=== PATIENT | male | born 1935 | race Caucasian/White ===

== ENCOUNTER 2019-03-16 14:04 | Inpatient (IN) ==
[2019-03-16] MEDS ORDERED: ASPIRIN PO ONE (14:25)
--- NOTE | 2019-03-16 14:48 | Diag Imaging Result Doc PS360 ---
EXAM: CHEST-2 VIEWS 03/16/2019 HISTORY: shortness of breath TECHNIQUE: PA and lateral chest COMMENT: The lungs are hypoinflated. There are no previous studies. There may be some mild atelectasis laterally in the left lower lobe. IMPRESSION: Left lower lobe atelectasis versus pneumonia. Electronically signed by Freeman Emerson 03/16/2019 2:46 PM
[2019-03-16 14:52] LABS: BASO# 0.05 X1000 (0.0-0.2); BASO% 0.4 % (0.0-0.8); EOS# 0.39 X1000 (0.0-0.7); EOS% 2.8 % (0.0-10.0); HEMATOCRIT 45.4 % (42.0-52.0); HEMOGLOBIN 15.2 g/dL (14.0-18.0); IMM GRAN# 0.04 X1000 (0.0-0.04); IMM GRAN% 0.3 % (0.0-0.5); LYMPH# 1.12 X1000 (1.2-3.4); LYMPH% 8.1 % (20.5-51.1); MCH 30.2 PG (27-31); MCHC 33.5 g/dL (33-37); MCV 90.1 FL (81-99); MONO# 1.72 X1000 (0.11-0.59); MONO% 12.4 % (1.7-9.3); MPV 10.7 FL (7.4-10.4); PLT 374 X1000 (130-400); RBC 5.04 XMIL (4.7-6.1); RDW 13.8 % (11.5-14.5); WBC 13.82 X1000 (4.8-10.8)
--- NOTE | 2019-03-16 14:54 | EKG Report ---
Test Performed on : 03/16/2019 2:10:25 PM Test Reason : shortness of breath Blood Pressure : / mmHG Vent. Rate : 083 BPM Atrial Rate : 083 BPM P-R Int : 192 ms QRS Dur : 126 ms QT Int : 410 ms P-R-T Axes : 063 -34 007 degrees QTc Int : 481 ms Sinus rhythm. with premature atrial complexes. Left axis deviation Right bundle branch block Abnormal ECG No previous ECGs available Unconfirmed Result
[2019-03-16 14:58] LABS: INR 1.01; PROTIME 13.5 Seconds (11.0-16.0)
[2019-03-16 14:59] LABS: PTT 28.8 Seconds (22.3-41.8)
[2019-03-16 15:20] LABS: AGAP 14; ALB/GLOB RATIO 1.4; ALBUMIN 3.2 g/dL (3.5-5.0); ALKALINE PHOSPHATASE 102 U/L (32-122); BUN 17 mg/dL (8-22); CALCIUM 9.1 mg/dL (8.8-10.2); CHLORIDE 99 mmol/L (98-107); CK PROFILE 107 U/L (24-204); COSMO 281; CREATININE 0.8 mg/dL (0.7-1.2); ESTIMATED GFR > 60; GLUCOSE 138 mg/dL (70-104); GOT 24 U/L (10-34); GPT 12 U/L (10-44); SODIUM 139 mmol/L (136-145); TCO2 26 mmol/L (25-35); TOTAL BILIRUBIN 0.26 mg/dL (0.20-1.00); TOTAL PROTEIN 5.5 g/dL (6.3-8.3)
--- NOTE | 2019-03-16 17:22 | Diag Imaging Result Doc PS360 ---
CT ABD/PELVIS W/IV CONT ONLY - 03/16/2019 INDICATION: abdominal distension COMPARISON: None FINDINGS: There is a trace left pleural effusion. Heart size is normal. No infiltrates in the lung bases. There is odqwa-sh-ldypqtkp ascites. There is omental caking consistent with carcinomatosis. There is an ill-defined mass occupying the left lobe of the liver measuring about 3.8 x 6.2 cm. There are a few other smaller hypoenhancing lesions scattered throughout the liver as well. There is essentially hypoenhancing adenopathy surrounding the pancreatic head, and in the portacaval space. These nodes measure up to about 2.7 cm. There is diffuse atrophy of the pancreas. Main portal vein is patent. Normal spleen size. Splenic vein is patent. The liver is very atrophic. There are bilateral renal cysts. These appear simple. Otherwise the kidneys are normal. There is some diverticulosis of the distal colon. Otherwise the gastric intestinal tract all appears normal. There is a penile implant. Prostate is absent. Urinary bladder and rectum are normal. There are moderate degenerative changes of the spine. No acute or suspicious bony lesion. IMPRESSION: Peritoneal carcinomatosis. Small to moderate ascites. Multiple liver masses including a dominant mass in the left lobe of the liver. Hepatic adenopathy. Consistent with either cirrhosis with primary hepatocellular carcinoma, or metastatic disease to the liver from an unclear source. This exam was performed using automated exposure control, adjustment of mA or kV according to patient size, and/or use of iterative reconstruction technique Electronically signed by Murali Tabares 03/16/2019 5:20 PM
[2019-03-16] MEDS ORDERED: LEVAQUIN 500 MG/D5W 500 MG/100 ML IVPB IV ONE (17:52)
--- NOTE | 2019-03-16 18:08 | PROVIDER DOCUMENTATION ---
This chart was entered by Maggie Diaz Scribe, acting as scribe for Gaurav Lee MD. HPI-Respiratory General - General Chief Complaint: Shortness of Breath Stated Complaint: SOB Time Seen by Provider: 03/16/19 14:54 Source: patient Allergies/Adverse Reactions: Patient Allergies Allergy/AdvReac Type Severity Reaction Status Date / Time No Known Allergies Allergy Verified 03/16/19 16:48 Home Medications: Home Medication List Medication Instructions Recorded Confirmed Last Taken Type Chlorthalidone 12.5 mg PO DAILY 03/16/19 03/16/19 Unknown History - History of Present Illness-Resp Nature of Presenting Problem: Patient is a 83 year old male who presents with shortness of breath. States shor tness of breath has been present for 2 days. Denies chest pain. Quality of Pain: reports: tightness Severity in ED: reports: mild Onset/Duration: reports: 2 days ago Timing: reports: still present Associated Symptoms: reports: shortness of breath Similar Symptoms Previously?: Yes Recently seen or treated by another doctor?: No Review of Systems - Adult - REVIEW OF SYSTEMS - ADULT Constitutional: reports: no symptoms reported Eyes: reports: no symptoms reported Ears, Nose, Mouth & Throat: reports: no symptoms reported Cardiovascular: reports: no symptoms reported. denies: chest pain, irregular heart rate, palpitations Respiratory: reports: see HPI, shortness of breath. denies: cough, wheezing Gastrointestinal: reports: no symptoms reported Genitourinary: reports: no symptoms reported Musculoskeletal: reports: no symptoms reported Integumentary: reports: no symptoms reported Neurological: reports: no symptoms reported Psychiatric: reports: no symptoms reported Endocrine: reports: no symptoms reported Hematologic/Lymphatic: reports: no symptoms reported Allergic/Immunologic: reports: no symptoms reported All Other Systems: Reviewed and Negative Past History - Adult - PAST MEDICAL HISTORY-ADULT Review of Records: reports: Old Records Reviewed, Nursing Assessment Review, Medications Reviewed, Social history reviewed & non-contributory. Major Childhood Illnesses: reports: denies history Cardiovascular: reports: denies history Respiratory: reports: denies history Gastrointestinal: reports: denies history Obstetrical/Gynecological: reports: denies history Genitourinary: reports: denies history Musculoskeletal: reports: denies history Neurological: reports: denies history Endocrine/Immune: reports: denies history Other Conditions: reports: denies history - PRIOR SURGERIES/PROCEDURES Surgical/Procedure History: reports: reviewed, not pertinent - IMMUNIZATION STATUS Childhood Immunizations: See Nurse Assessment Flu Vaccine: See Nurse Assessment - FAMILY HISTORY Family History: reviewed, not pertinent - SOCIAL HISTORY Smoking: denies Substance Use: denies Living Situation: family Physical Exam-General - PHYSICAL EXAM-ADULT Initial Vital Signs Reviewed: Yes - CONSTITUTIONAL General Appearance: alert, no apparent distress. negative: lethargic - HEAD, EARS, NOSE, MOUTH & THROAT HENMT: normocephalic/atraumatic, moist mucous membranes. negative: angioedema - RESPIRATORY Respiratory: chest non-tender, lungs clear, normal breath sounds. negative: crackles, stridor - CARDIOVASCULAR Cardiovascular: normal peripheral pulses, regular rate, rhythm. negative: ta chycardia - GASTROINTESTINAL (ABDOMEN) Abdominal Exam: non tender, abnormal bowel sounds (hyper active bowel sounds), distended, other (tight abdomen). negative: guarding, rebound - MUSCULOSKELETAL Extremity: normal inspection. negative: deformity, erythema - SKIN Integumentary: normal color, normal turgor, warm/dry. negative: diaphoresis, ecchymosis, jaundice - NEUROLOGIC Neurologic: grossly normal. negative: aphasia, facial droop - PSYCHIATRIC Psych/Mental Status: normal mood/affect, oriented x 3. negative: anxious Progress - PLAN OF CARE/RESULTS Progress/Plan/Lab Results: Vital Signs - 8 hr 03/16/19 14:21 Temperature 97.8 F Pulse Rate 82 Respiratory Rate 26 H Blood Pressure 122/81 O2 Sat by Pulse Oximetry 95 Laboratory Results - last 24 hr 03/16/19 03/16/19 03/16/19 14:33 14:33 14:33 WBC 13.82 H RBC 5.04 Hgb 15.2 Hct 45.4 MCV 90.1 MCH 30.2 MCHC 33.5 RDW Std Deviation 13.8 Plt Count 374 MPV 10.7 H Immature Gran % (Auto) 0.3 Neut % (Auto) 76.0 H Lymph % (Auto) 8.1 L Mckean % (Auto) 12.4 H Eos % (Auto) 2.8 Baso % (Auto) 0.4 Immature Gran # (Auto) 0.04 Neut # (Auto) 10.50 H Lymph # (Auto) 1.12 L Mckean # (Auto) 1.72 H Eos # (Auto) 0.39 Baso # (Auto) 0.05 PT INR PTT (Actin FS) Sodium 139 Potassium 4.0 Chloride 99 Carbon Dioxide 26 Anion Gap 14 BUN 17 Creatinine 0.8 Estimated GFR/1.73 m2 > 60 BUN/Creatinine Ratio 21 Glucose 138 H Calculated Osmolality 281 Calcium 9.1 Total Bilirubin 0.26 AST 24 ALT 12 Alkaline Phosphatase 102 Creatine Kinase 107 Troponin T Pgm-I-Bohrzynvdsj Pept 178 Total Protein 5.5 L Albumin 3.2 L Globulin 2.3 Albumin/Globulin Ratio 1.4 03/16/19 03/16/19 14:33 14:33 WBC RBC Hgb Hct MCV MCH MCHC RDW Std Deviation Plt Count MPV Immature Gran % (Auto) Neut % (Auto) Lymph % (Auto) Mckean % (Auto) Eos % (Auto) Baso % (Auto) Immature Gran # (Auto) Neut # (Auto) Lymph # (Auto) Mckean # (Auto) Eos # (Auto) Baso # (Auto) PT 13.5 INR 1.01 PTT (Actin FS) 28.8 Sodium Potassium Chloride Carbon Dioxide Anion Gap BUN Creatinine Estimated GFR/1.73 m2 BUN/Creatinine Ratio Glucose Calculated Osmolality Calcium Total Bilirubin AST ALT Alkaline Phosphatase Creatine Kinase Troponin T < 0.010 Uca-R-Uwabdvbpjgx Pept Total Protein Albumin Globulin Albumin/Globulin Ratio Orders Category Date Time Status Admit - [facility] Routine AdmDCTranf 03/16/19 17:53 Active Activity - Bed Rest with BRP ORDERED Care 03/16/19 17:56 Active Call Admitting on Arrival AT ADMISSION Care 03/16/19 17:57 Active Cardiac Monitoring DIRECTED Care 03/16/19 14:26 Active Oxygen Therapy- ED Nursing DIRECTED Care 03/16/19 14:26 Active Saline Loc NOW Care 03/16/19 14:26 Active Vital Signs Order ROUTINE Care 03/16/19 17:56 Active Z-Document. for Tele Applied ORDERED Care 03/16/19 17:59 Active Regular Diet Diet 03/16/19 17:59 Active CHEST-2 VIEWS [RAD] Stat Exams 03/16/19 14:[address] ABD/PELVIS W/IV CONT ONLY [CT] Stat Exams 03/16/19 14:59 Completed BLOOD CULTURE [BLDCUL] Stat Lab 03/16/19 16:40 Results CBC WITH ELECTRONIC DIFF [HEME] Stat Lab 03/16/19 14:33 Completed CK PROFILE [SP CHEM] Stat Lab 03/16/19 14:33 Completed COMPREHENSIVE METABOLIC PANEL [CHEM] Stat Lab 03/16/19 14:33 Completed PRO B-NATRIURETIC PEPTIDE Stat Lab 03/16/19 14:33 Completed PROTIME WITH INR [COAG] Stat Lab 03/16/19 14:33 Completed PTT [COAG] Stat Lab 03/16/19 14:33 Completed TROPONIN T Stat Lab 03/16/19 14:33 Completed Aspirin Med 03/16/19 14:25 Discontinued 325 mg PO NOW ONE Levofloxacin 500 mg/D5w [Levaquin 500 mg/D5w] Med 03/16/19 17:52 Active 500 mg in 100 ml IV NOW CP/SOB/Palp >45 yrs of Age Stat Oth 03/16/19 14:25 Ordered Oxygen Device Routine Oth 03/16/19 17:57 Active Telemetry [OM.EQ] Routine Oth 03/16/19 17:56 Active EKG [EKG] Stat Ther 03/16/19 14:26 Draft Transfer/Admit Order [TRANSFER] Routine Transfer 03/16/19 17:59 Ordered Result Diagrams: 03/16/19 14:33 03/16/19 14:33 - EKG 1 Time of EKG reading by physician:: 14:10 EKG Read and Signed by:: Gaurav Lee EKG Interpretation (*Must complete 3 of following elements*): Abnormal Rate: 83 Rhythm: sinus rhythm with premature atrial complexes [place]: left QRS: RBB GA Interval: normal Comments: abnormal ECG - XRAY 1 XRAY Study: Chest Impression: See EMR Report (EXAM: CHEST-2 VIEWS 03/16/2019 HISTORY: shortness of breath TECHNIQUE: PA and lateral chest COMMENT: The lungs are hypoinflated. There are no previous studies. There may be some mild atelectasis laterally in the left lower lobe. IMPRESSION: Left lower lobe atelectasis versus pneumonia. Electronically signed by Freeman Emerson 03/16/2019 2:46 PM 03/16/19 144 Interpreting Physician: Freeman Emerson MD Dictated Date/Time: 03/16/19 1446 cc: Gaurav Lee MD; Brendan Velasquez MD) - CT/MRI 1 CT Study: Abdomen, Pelvis Impression: Abnormal ([facility] - [address], [address], [place] [address] [facility] - [address] [place] [address] Department of Imaging Patient: NIKUNJ SNELL Date: 03/16/19MR#: [id number] : 1936ADM Status: REG [facility]#: [id number] Age/Sex: 83/MRoom/Bed: Loc: ED Ordering Physician: Gaurav Lee MD Family Physician: Brendan Velasquez MD Reason for Procedure: abdominal distension Signed CT ABD/PELVIS W/IV CONT ONLY - 03/16/2019 INDICATION: abdominal distension COMPARISON: None FINDINGS: There is a trace left pleural effusion. Heart size is normal. No infiltrates in the lung bases. There is nqjsc-no-jnqioikm ascites. There is omental caking consistent with carcinomatosis. There is an ill-defined mass occupying the left lobe of the liver measuring about 3.8 x 6.2 cm. There are a few other smaller hypoenhancing lesions scattered throughout the liver as well. There is essentially hypoenhancing adenopathy surrounding the pancreatic head, and in the portacaval space. These nodes measure up to about 2.7 cm. There is diffuse atrophy of the pancreas. Main portal vein is patent. Normal spleen size. Splenic vein is patent. The liver is very atrophic. There are bilateral renal cysts. These appear simple. Otherwise the kidneys are normal. There is some diverticulosis of the distal colon. Otherwise the gastric intestinal tract all appears normal. There is a penile implant. Prostate is absent. Urinary bladder and rectum are normal. There are moderate degenerative changes of the spine. No acute or suspicious bony lesion. IMPRESSION: Peritoneal carcinomatosis. Small to moderate ascites. Multiple liver masses including a dominant mass in the left lobe of the liver. Hepatic adenopathy. Consistent with either cirrhosis with primary hepatocellular carcinoma, or metastatic disease to the liver from an unclear source. This exam was performed using automated exposure control, adjustment of mA or kV according to patient size, and/or use of iterative reconstruction technique Electronically signed by Murali Tabares 03/16/2019 5:20 PM 03/16/19 1720 Interpreting Physician: Murali Tabares MD Dictated Date/Time: 03/16/19 1711 cc: Gaurav Lee MD; Brendan Velasquez MD), See EMR Report - CONSULTS/PCP/HOSPITALIST Notification #1 *Consult/PCP/Hospitalist*: Dr. Velasquez Time Discussed: 17:02 Reason/Comments: Dr. Lee consulted with Dr. Velasquez Consult Disposition: other (Dr. Velasquez states call him when the CT results) #2 Consult: Dr. Velasquez Time Discussed: 17:51 Reason/Comments: Dr. Lee consulte with Dr. Velasquez about patient. Consult Disposition: Will see in ED, Admit Departure - Departure Date of Disposition Decision: 03/16/19 Time of Disposition Decision: 17:51 DIAGNOSIS: Liver mass, Pneumonia, Cirrhosis of liver with ascites Disposition: ADMITTED INPATIENT 09 Certified Medical Emergency: Emergent Condition: Fair Referrals and Follow-Ups: Brendan Velasquez MD [Primary Care Provider] - - Critical Care Note This patient required my direct & personal management of CC.: No Attestation - Physician/ DOV Attestation Patient care was provided by Advanced Practice Provider:: No The physician spent face to face time with patient:: Yes Advanced Practice Provider documentation review:: Supervising physician onsite and consulted in the evaluation and care of this patient. The physician did have a face to face encounter with the patient. This chart was documented by the indicated scribe, (Maggie Diaz Scribe) and accurately reflects the services I performed and decisions made by me, Gaurav Lee MD, as attested by the provider's signature.
[2019-03-16] MEDS ORDERED: XANAX MISC ONE (18:53)
[2019-03-16] MEDS ORDERED: XANAX PO PRN (21:00)
[2019-03-16] MEDS ORDERED: XANAX PO ONE (21:27)
[2019-03-16] MEDS ORDERED: XANAX PO SCH (22:00)
--- NOTE | 2019-03-16 23:02 | HISTORY AND PHYSICAL ---
CHIEF COMPLAINT: Shortness of breath and increasing abdominal girth. HISTORY OF PRESENT ILLNESS: Mr. Gandara is an 83-year-old gentleman I have followed for many years in my office. He presented to the emergency room today with a 3- to 4-day history of progressively worsening shortness of breath and increasing abdominal girth. His weight in my office in November was 206 pounds. He says about a week ago he began gaining several pounds a day and now weighs 219 pounds. The emergency room physician ordered a chest x-ray and some basic lab work first. This showed very slight leukocytosis and a fairly normal chemistry profile. Because of his abdominal distention, a CT of the abdomen was performed with intravenous contrast. This showed relatively clear lungs with a trace left pleural effusion. Moderate ascites was noted. Omental caking was noted consistent with carcinomatosis. An ill-defined mass in the left lobe of the liver was noted, about 3.8 x 6.2 cm with a few smaller scattered hypoenhancing lesions throughout. Hypoenhancing adenopathy was noted surrounding the pancreatic head. Some diverticulosis of the distal colon was noted, but otherwise the GI tract appeared normal. The prostate was absent. PAST MEDICAL HISTORY: Mr. Gandara has a history of alcohol intake, and up until approximately a year ago he drank about 1.75 liters of bourbon a week. He developed peripheral neuropathy. His B12 level was low, and he was begun on replacement. His earlier this year with longstanding dementia, and he now has a girlfriend and has quit drinking. His liver function tests, which were previously elevated, have been normal now and in November. He has a history of hypertension previously treated with chlorthalidone. ALLERGIES: No known allergies. HOME MEDICATIONS: Aleve 220 mg b.i.d. as needed for pain, vitamin B12, 1000 mcg tablet 1 daily, chlorthalidone 25 mg, half a tablet daily. PAST SURGICAL HISTORY: Prostatectomy in 2004 followed by penile prosthesis. SOCIAL HISTORY: He is . He smoked 1 pack a day for approximately 40 years but quit in 1996. 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 FAMILY HISTORY: Positive for early Alzheimer disease. REVIEW OF SYSTEMS: GENERAL: No fever/chills, night sweats. 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 He has had previous cataract surgery. He wears hearing aids bilaterally. Denies any sore throat, hoarseness or tinnitus. CARDIOVASCULAR: He has a history of rheumatic fever as a child. No history of ischemic heart disease or chest pain. No history of congestive heart failure or arrhythmias. No palpitations. No syncope. RESPIRATORY: No history of COPD, hemoptysis, wheezing, cough or orthopnea. GI: He denies abdominal pain but has noticed increasing girth and weight. His appetite has been good. He denies any diarrhea or constipation. He has no difficulty swallowing, heartburn, melena or hematemesis. : He sees Dr. Springer yearly since his prostatectomy but denies any dysuria. He has occasional mild urinary incontinence. MUSCULOSKELETAL: Occasional shoulder and low back ache at times. Can rarely require medication. SKIN: He has a history of psoriasis and uses topical steroids as needed. NEUROLOGIC: No recent falls. No headache, numbness, tingling, seizures, strokes or tremor. PSYCHOLOGICAL: No mood, memory or thought disorders. ENDOCRINE: No history of thyroid disease or diabetes. HEMATOLOGIC: No abnormal bleeding or bruising. PHYSICAL EXAMINATION: VITAL SIGNS: Temperature 97.8, blood pressure 135/91, pulse 81, respirations 23, 02 saturation 97% on room air. GENERAL APPEARANCE: Alert, cooperative, elderly gentleman who appears somewhat younger than his stated age, in no distress. HEENT: Pupils equal, round, and reactive to light. Extraocular movements intact. Oropharynx is benign. NECK: Supple with no adenopathy, JVD, thyromegaly or bruits. LUNGS: Clear to auscultation and percussion. CARDIOVASCULAR: There is a regular rate and rhythm with normal S1 and S2. No murmurs or gallops. ABDOMEN: Moderately distended and globular. No masses are palpable. Bowel sounds are active throughout. MUSCULOSKELETAL: No clubbing, cyanosis, or edema. No CVA tenderness. DERMATOLOGIC: Normal skin turgor without jaundice. He has multiple scaly red spots, increased on the extensor surface of his elbows. NEUROLOGIC: Cranial nerves II-XII are grossly intact. I do not appreciate any focal deficits. Gait is unremarkable. PSYCHIATRIC: Mood and affect are appropriate. He is alert and oriented. ASSESSMENT: 1. Increasing abdominal girth and weight with shortness of breath, probably due to ascites. 2. Probable carcinomatosis of the abdomen. Primary tumor is uncertain but may be a liver tumor. He probably also has some degree of cirrhosis. 3. Essential hypertension. 4. History of polyneuropathy, possibly due to alcohol or to his B12 deficiency, or some combination. 5. History of prostate cancer. 6. History of psoriasis. PLAN: Will admit and treat tonight. He will be started on some IV Levaquin, although there is no clear infection to treat. Will consult Dr. Koby Tomas in the morning, and hopefully an ultrasound-directed paracentesis can get us started to a diagnosis of the tumor. Will consider spironolactone and/or Lasix for diuresis. cc: Brendan Velasquez MD
[2019-03-17] MEDS: XANAX PO PRN ×2 (01:50→21:33)
--- NOTE | 2019-03-17 09:34 | Diag Imaging Result Doc PS360 ---
EXAM: US ABD PARACENTESIS W S/I HISTORY: ascites, malignant? TECHNIQUE: Ultrasound-guided paracentesis COMPARISON: None. FINDINGS: Prior to the procedure I discussed the risk and benefits with the patient. Primary risks include bleeding, infection, bowel injury, and liver injury. Questions were answered. Consent was given. The permit was signed. Ultrasound was used to localize the largest fluid collection in the right abdomen. This area was cleaned and draped in the normal fashion. Lidocaine was used as a local anesthetic. Needle and catheter were advanced into the fluid collection on the first attempt without difficulty. The needle was withdrawn. The catheter was hooked to suction. Approximately 4.5 L were withdrawn without difficulty. The catheter was then withdrawn. No immediate postprocedural complications. IMPRESSION: Successful ultrasound-guided paracentesis. Electronically signed by Richard Caballero 03/17/2019 9:31 AM
[2019-03-17 15:06] LABS: LDH BODY FLUID 169 U/L
--- NOTE | 2019-03-17 16:54 | HEMO/ONC CONSULTATION ---
DATE: 03/17/2019 REASON FOR CONSULTATION: Possible liver mass. HISTORY OF PRESENT ILLNESS: Mr. Gandara is an 83-year-old gentleman who is a patient of Dr. Lucia, who presented to the emergency room yesterday with a 3 to 4 day history of progressively worsening shortness of breath and increasing abdominal girth. He states that about a week ago he began gaining several pounds a day. He has put on approximately [address] of his abdomen was performed in the ER which showed possible peritoneal carcinomatosis, small to moderate ascites, multiple liver masses including a dominant mass in the left lobe, hepatic/periaortic and peripancreatic adenopathy. The patient has been admitted for further evaluation. PAST MEDICAL HISTORY: Peripheral neuropathy, B12 deficiency, hypertension, long history of alcohol use and abuse, glaucoma. SOCIAL HISTORY: The patient drinks alcohol daily. He has significantly cut back on his amount since the with his a year ago. He smoked 1 pack a day for approximately 40 years, but quit in 1996. ALLERGIES: No known drug allergies. HOME MEDICATIONS: Aspirin, chlorthalidone, latanoprost, PreserVision AREDS vitamin, B12, and Aleve. PAST SURGICAL HISTORY: Prostatectomy in 2004, followed by a penile prosthesis. REVIEW OF SYSTEMS: Includes shortness of breath, abdominal distention. Pertinent positives are noted in the HPI. VITAL SIGNS: Temperature 98.4 degrees, pulse rate 77, respiratory rate 16, blood pressure 108/61, O2 saturation 95% on room air. He is in 0/10 pain. PHYSICAL EXAMINATION: General: This is an elderly male, in no acute distress. HEENT: PERRLA. Sclerae anicteric. visual deficiencies. Hard of hearing, wears hearing aids. Cardiovascular: Normal S1, S2. Heart rate and rhythm are regular. No murmurs appreciated. Respiratory: Lungs clear to auscultation. Normal respiratory effort. Abdomen: Moderately distended. No masses palpable. Bowel sounds are present. No pain with palpation. Neurological: Awake, alert, and oriented. No focal motor deficits. Extremities: No lower extremity edema noted. LABORATORY: WBC 13.82, hemoglobin 15.2, hematocrit 45.4, platelet count 374,000. CEA 0.6. PSA 0.01. RADIOLOGY: Chest x-ray shows left lower lobe atelectasis versus pneumonia. Abdominal and pelvis CT shows peritoneal carcinomatosis, small to moderate ascites, multiple liver masses including a dominant mass in the left lower lobe of the liver, and hepatic adenopathy. Paracentesis ultrasound was successful. Approximately 4.5 L were withdrawn without difficulty. ASSESSMENT: 1. Liver Metastasis, peritoneal carcinomatosis and upper abdominal lymphadenopathy. Primary tumor is uncertain. We will wait on cytology of the fluid from paracentesis. Dr. Tomas is in discussion with pathologist. Depending on this we will decide on further biopsy. Patient reports he wants palliative treatments.Check AFP and ca19-9. 2. History of prostate cancer. Check PSA 3. Ascitis - likely malignant. Dictated by JITENDRA Gerardo for Koby Tomas MD cc: MD Brendan Cruz MD MTDD
[2019-03-18 08:55] LABS: BODY FLUID SOURCE PERITONEAL FLUID
[2019-03-18 08:56] LABS: WBC BF 0.803 /cumm
--- NOTE | 2019-03-18 16:30 | HEMO/ONC PROGRESS NOTE ---
DATE: 03/18/2019 SUBJECTIVE: The patient is resting comfortably in bed this morning with his eyes closed. He does respond to my touch but he does not wake up to answer questions this morning. His son-in-law states that he had a good night's sleep. He is resting comfortably. The patient denies any pain and he tolerated yesterday's procedure very well. OBJECTIVE: Vital Signs: Temperature 98.5 degrees, pulse rate 74, respiratory rate 14, blood pressure 119/59, O2 saturation 96% on room air. He is in 0 out of 10 pain. PHYSICAL EXAMINATION: General: This is an ill-appearing elderly male in no acute distress. HEENT: PERRLA. Sclerae is anicteric. Noted visual deficiency. Hard of hearing, wears hearing aids. Cardiovascular: Normal S1, S2. Heart rate and rhythm is regular. Respiratory: Lungs are clear to auscultation. Normal respiratory effort. Abdomen: Moderately distended. No palpable masses. Bowel sounds are present. No pain with palpation. Neurological: Awake, alert, oriented. No focal motor deficits. Extremities: No lower extremity noted. LABORATORY: No labs drawn today. Tumor marker AFP came back less than 2.7, CEA 0.6, PSA screen 0.01. Peritoneal fluid did not show enough tissue for biopsy. ASSESSMENT: 1. Liver metastasis, peritoneal carcinomatosis and upper abdominal lymphadenopathy. Primary tumor is uncertain. We continue to wait on the cytology of the fluid from paracentesis. However, so far it is showing it does not have enough tissue to make a diagnosis. We will proceed with the CT-guided liver biopsy at this time. We will wait on that pathology. Depending on mass, we will decide further treatment. The patient reports that he wants palliative treatment. We are continuing to wait on the CA-19-9. 2. History of prostate cancer. PSA is 0.01. 3. 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 4. Deep venous thrombosis prophylaxis. Get the patient up out of bed several times daily consider sequential compression devices while resting. Dictated by JITENDRA Gerardo for Koby Tomas MD As above. Discussed with pathologist. they do not have enough material on the ascitic fluid to give us a diagnosis. Proceed with CT guided liver biopsy. OK with discharge after that from my standpoint. Koby Laurent MD. cc: MD Brendan Cruz MD [facility]
[2019-03-18] MEDS ORDERED: AMBIEN PO SCH (21:00)
[2019-03-19 11:55] VITALS: BP 114/69
--- NOTE | 2019-03-19 11:58 | Diag Imaging Result Doc PS360 ---
CT GUIDED BX LIVER - 03/19/2019 INDICATION: Determine cancer primary TECHNIQUE: The risks and benefits of the procedure were discussed with the patient. All questions were answered. Written and verbal informed consent was obtained. Overlying skin was prepped and draped in sterile fashion. Anesthesia was achieved with injection of 10 cc of 1% lidocaine. COMPARISON: CT from 03/16/2019 FINDINGS: The large mass occupying the left lobe of the liver was biopsied anteriorly. Seven biopsy specimens were obtained. The needles were withdrawn intact. The patient reported no symptoms from the procedure. IMPRESSION: Successful and uncomplicated CT-guided liver biopsy. Electronically signed by Murali Tabares 03/19/2019 11:56 AM
--- NOTE | 2019-03-19 13:13 | HEMO/ONC PROGRESS NOTE ---
DATE: 03/19/2019 SUBJECTIVE: The patient is awake, lying in bed this morning. He is in no acute distress. He denies any pain or complaint. States he feels rather well. He has had a good night's sleep and is prepared for his procedure today. OBJECTIVE: Vital Signs: Temperature 97.6 degrees, pulse rate 71, respiratory rate 16, blood pressure 114/69, O2 saturation 99% on room air. He is in 0/10 pain. PHYSICAL EXAMINATION: General: This is an elderly male in no acute distress. HEENT: PERRLA. Sclerae is anicteric. No evident visual deficiencies. Hard of hearing; wears hearing aids. Cardiovascular: Normal S1, S2. Heart rate and rhythm is regular. Respiratory: Lungs are clear to auscultation. Normal respiratory effort. Abdomen: Moderately distended. No palpable masses. Bowel sounds are present. Soft. No pain with palpation. Neurological: Awake, alert, and oriented. No focal motor deficits. Extremities: No lower extremity edema noted. LABORATORY: CA 19-9 16. No further labs have been drawn. ASSESSMENT AND PLAN: 1. Liver metastasis, peritoneal carcinomatosis and upper abdominal lymphadenopathy. Primary tumor remains uncertain. The patient had a CT-guided liver biopsy this morning. We will wait on pathology. Depending on the mass, we will decide further treatment as an outpatient in the clinic. The patient is okay to be discharged from our standpoint. We will follow up with the patient as an outpatient. We will obtain a PET scan and determine if there are further therapies from there. The patient does report that he wants palliative treatment. 2. History of prostate cancer. PSA is 0.01. 3. Ascites--likely malignant. 4. Deep vein thrombosis prophylaxis. Continue to get the patient up out of bed several times a day and consider sequential compression devices while resting. Dictated by JITENDRA Gerardo for Koby Tomas MD cc: MD Brendan Cruz MD MTDD
--- NOTE | 2019-03-19 18:49 | DISCHARGE SUMMARY ---
ADMISSION DATE: 03/16/2019 DISCHARGE DATE: 03/19/2019 FINAL DIAGNOSES: 1. Liver mass with suspected malignant ascites. 2. History of hypertension. 3. Pernicious anemia. 4. History of prostatectomy for prostate cancer. HISTORY: Mr. Gandara is an 83-year-old gentleman who I have followed for many years. He presented to the emergency room with a three to four-day history of progressively worsening shortness of breath and increasing abdominal girth. Over the past one to two weeks he had gained from 206 pounds to 219 pounds. The emergency room physician evaluated him and his chest x-ray was remarkable mainly for decreased inspiration and possible atelectasis. A CT scan of his abdomen was performed with IV contrast only. He had ill-defined mass in the left lobe of the liver noted, approximately 3.8 x 6.2 cm. He was noted to have significant ascites with suspected omental implants consistent with intraabdominal carcinomatosis. Adenopathy in the rayray hepatis and around the head of the pancreas was noted as well. PHYSICAL EXAMINATION: VITAL SIGNS: Unremarkable. Normal O2 saturation and blood pressure. GENERAL: He was an alert and cooperative elderly gentleman, appearing somewhat younger than his stated age. HEENT: Exam was unremarkable. NECK: Supple with no adenopathy. LUNGS: Clear. CARDIOVASCULAR: Regular rate and rhythm. No murmurs or gallops. ABDOMEN: Moderately distended and globular without palpable masses. Bowel sounds were active. There was no jaundice. HOSPITAL COURSE: He was admitted to the medical floor. The following morning abdominal paracentesis was performed by the radiologist under ultrasound guidance. 4.7 liters of straw- colored fluid was obtained. The multiple tumor markers, including PSA, alpha fetoprotein and carcinoembryonic antigen were obtained and were normal. CA1-19 result is pending. The peritoneal fluid LDH was 169. A verbal report of the cytology on the peritoneal fluid was suspected malignancy of undetermined type but the final report is not yet released. This morning he underwent a CT directed biopsy of the mass in the left lobe of the liver. Seven cores were obtained. He has remained free of significant pain and shortness of breath. He is eager to return home. He is discharged to return to see Dr. Tomas next week for review of the biopsy report and hopefully to plan some palliative chemotherapy. DISCHARGE MEDICATIONS: Aspirin 81 mg daily, latanoprost eye drops as previously prescribed and AREDS 2 multivitamin, two capsules a day. He is to discontinue the chlorthalidone as his blood pressure here was normal to borderline low off of his antihypertensive medication. FOLLOWUP: He will follow up in my office in three to four weeks for followup. cc: Brendan Velasquez MD
== END 2019-03-19 14:53 | disposition home or self-care (01) | DRG 375 ==
LOC: ED 14:04 → 4N 20:10
PROVIDERS: ADMIT Internal Medicine; ATTEND Internal Medicine

== ENCOUNTER 2019-03-21 11:12 | Inpatient (IN) ==
[2019-03-21 12:24] LABS: BASO# 0.06 X1000 (0.0-0.2); BASO% 0.5 % (0.0-0.8); EOS# 0.21 X1000 (0.0-0.7); EOS% 1.6 % (0.0-10.0); HEMATOCRIT 43.7 % (42.0-52.0); HEMOGLOBIN 14.5 g/dL (14.0-18.0); IMM GRAN# 0.06 X1000 (0.0-0.04); IMM GRAN% 0.5 % (0.0-0.5); LYMPH# 1.04 X1000 (1.2-3.4); LYMPH% 7.9 % (20.5-51.1); MCH 29.5 PG (27-31); MCHC 33.2 g/dL (33-37); MONO# 1.51 X1000 (0.11-0.59); MONO% 11.5 % (1.7-9.3); MPV 10.4 FL (7.4-10.4); NEUT# 10.28 X1000 (1.4-6.5); PLT 416 X1000 (130-400); RBC 4.91 XMIL (4.7-6.1); RDW 13.5 % (11.5-14.5); WBC 13.16 X1000 (4.8-10.8)
--- NOTE | 2019-03-21 12:42 | PROVIDER DOCUMENTATION ---
This chart was entered by Alethea Alfaro Scribe, acting as scribe for Cammy Kim MD. HPI-Respiratory General - General Chief Complaint: Shortness of Breath Stated Complaint: SOB, NAUSEA, STOMACH SWELLING Time Seen by Provider: 03/21/19 11:30 Source: patient, family, old records Allergies/Adverse Reactions: Patient Allergies Allergy/AdvReac Type Severity Reaction Status Date / Time No Known Allergies Allergy Verified 03/16/19 16:48 Home Medications: Home Medication List Medication Instructions Recorded Confirmed Last Taken Type Aspirin 81 mg PO DAILY 03/17/19 03/21/19 Unknown History Latanoprost 1 drp OPHTHALMIC (EYE) QHS 03/17/19 03/21/19 Unknown History Vit C/E/Zn/Coppr/Lutein/Zeaxan 2 cap PO DAILY 03/17/19 03/21/19 Unknown History [Preservision Areds 2 Softgel] - History of Present Illness-Resp Nature of Presenting Problem: 83 y/o male presents to ED with SOB, lethargy, and nausea onset this morning. Family of pt reports he was admitted for similar symptoms last week and discharged on Friday. Family states he had ascites drained while admitted, and he feels like it is back again. Pt is alert and oriented. Quality of Pain: reports: none Severity in ED: reports: mild Onset/Duration: reports: this morning Timing: reports: still present Context: reports: other Exposure: reports: unknown cause Cough Quality/Degree: reports: no cough Episode Frequency: rare episodes Current Respiratory Medication Therapy: Initiated see nurses note Modifying Factors: improves with: nothing Associated Symptoms: reports: shortness of breath, short of breath, other (lethargy; nausea) Similar Symptoms Previously?: Yes (admitted for similar symptoms last week) Recently seen or treated by another doctor?: Yes (admitted for similar symptoms last week) Review of Systems - Adult - REVIEW OF SYSTEMS - ADULT Constitutional: reports: other (lethargy). denies: chills, fever Eyes: reports: no symptoms reported Ears, Nose, Mouth & Throat: reports: no symptoms reported Cardiovascular: denies: chest pain, palpitations Respiratory: reports: shortness of breath. denies: cough Gastrointestinal: reports: nausea. denies: abdominal pain, diarrhea, vomiting Genitourinary: reports: no symptoms reported Musculoskeletal: reports: no symptoms reported Integumentary: reports: no symptoms reported Neurological: reports: no symptoms reported Psychiatric: reports: no symptoms reported Endocrine: reports: no symptoms reported Hematologic/Lymphatic: reports: no symptoms reported Allergic/Immunologic: reports: no symptoms reported All Other Systems: Reviewed and Negative Past History - Adult - PAST MEDICAL HISTORY-ADULT Review of Records: reports: Old Records Reviewed, Nursing Assessment Review, Medications Reviewed Major Childhood Illnesses: reports: denies history Cardiovascular: reports: HTN Genitourinary: reports: prostate cancer - PRIOR SURGERIES/PROCEDURES Surgical/Procedure History: reports: orthopedic (extremity) (elbow), other (TURP; bladder sling) - IMMUNIZATION STATUS Childhood Immunizations: See Nurse Assessment Flu Vaccine: See Nurse Assessment - FAMILY HISTORY Family History: reviewed, not pertinent - SOCIAL HISTORY Smoking: quit greater than 1 year Substance Use: none/never Alcohol Use Frequency: occasionally Living Situation: family Physical Exam-General - PHYSICAL EXAM-ADULT Initial Vital Signs Reviewed: Yes - CONSTITUTIONAL General Appearance: appears well, alert, no apparent distress - EYES Eyes: PERRL/EOMI, pink conjunctivae - HEAD, EARS, NOSE, MOUTH & THROAT HENMT: normocephalic/atraumatic, moist mucous membranes, normal ENT inspection - NECK Neck: non-tender, full range of motion - RESPIRATORY Respiratory: chest non-tender, lungs clear, normal breath sounds - CARDIOVASCULAR Cardiovascular: normal peripheral pulses, regular rate, rhythm - GASTROINTESTINAL (ABDOMEN) Abdominal Exam: normal bowel sounds, non tender, distended - MUSCULOSKELETAL Back Exam: normal inspection, no CVA tenderness, no vertebral tenderness Extremity: normal range of motion, non-tender - SKIN Integumentary: normal color, warm/dry, swelling (trace- 1 + pitting edema of bilateral lower extremities) - NEUROLOGIC Neurologic: grossly normal - PSYCHIATRIC Psych/Mental Status: normal mood/affect, normal thought content, normal thought process, oriented x 3 - HEART Score HEART Score: History: Slightly Suspicious HEART Score: ECG: Non-Specific Repolarization Disturbance/LBBB/PM HEART Score: Age: > or = 65 Years HEART Score: Risk Factors for Atherosclerotic Disease: 1 or 2 Risk Factors HEART Score: Troponin: < or = Normal Limit Total HEART Score:: 4 Progress - PLAN OF CARE/RESULTS Progress/Plan/Lab Results: Vital Signs - 8 hr 03/21/19 11:18 03/21/19 11:31 03/21/19 13:15 Temperature 98.5 F Pulse Rate 84 83 77 Respiratory Rate 22 20 21 Blood Pressure 113/67 114/72 101/64 O2 Sat by Pulse Oximetry 95 96 97 Laboratory Results - last 24 hr 03/21/19 03/21/19 03/21/19 12:10 12:10 12:10 WBC 13.16 H RBC 4.91 Hgb 14.5 Hct 43.7 MCV 89.0 MCH 29.5 MCHC 33.2 RDW Std Deviation 13.5 Plt Count 416 H MPV 10.4 Immature Gran % (Auto) 0.5 Neut % (Auto) 78.0 H Lymph % (Auto) 7.9 L Roosevelt % (Auto) 11.5 H Eos % (Auto) 1.6 Baso % (Auto) 0.5 Immature Gran # (Auto) 0.06 H Neut # (Auto) 10.28 H Lymph # (Auto) 1.04 L Roosevelt # (Auto) 1.51 H Eos # (Auto) 0.21 Baso # (Auto) 0.06 Sodium 135 L Potassium 4.7 Chloride 96 L Carbon Dioxide 25 Anion Gap 14 BUN 27 H Creatinine 1.3 H Estimated GFR/1.73 m2 52 BUN/Creatinine Ratio 21 Glucose 112 H Calculated Osmolality 276 Calcium 8.7 L Total Bilirubin 0.32 AST 28 ALT 12 Alkaline Phosphatase 98 Creatine Kinase 35 Troponin T Oex-[id number]-[id number] Pept 131 Total Protein 5.6 L Albumin 2.7 L Globulin 2.9 Albumin/Globulin Ratio 0.9 03/21/19 12:10 WBC RBC Hgb Hct MCV MCH MCHC RDW Std Deviation Plt Count MPV Immature Gran % (Auto) Neut % (Auto) Lymph % (Auto) Roosevelt % (Auto) Eos % (Auto) Baso % (Auto) Immature Gran # (Auto) Neut # (Auto) Lymph # (Auto) Roosevelt # (Auto) Eos # (Auto) Baso # (Auto) Sodium Potassium Chloride Carbon Dioxide Anion Gap BUN Creatinine Estimated GFR/1.73 m2 BUN/Creatinine Ratio Glucose Calculated Osmolality Calcium Total Bilirubin AST ALT Alkaline Phosphatase Creatine Kinase Troponin T < 0.010 [id number]-[id number] Pept Total Protein Albumin Globulin Albumin/Globulin Ratio Orders Category Date Time Status CHEST-1 VIEW [RAD] Stat Exams 03/21/19 11:57 Completed KUB ABDOMEN [RAD] Stat Exams 03/21/19 11:57 Completed ABG [RESP] Routine Lab 03/21/19 14:55 Ordered CBC WITH ELECTRONIC DIFF [HEME] Stat Lab 03/21/19 12:10 Completed CK PROFILE [SP CHEM] Stat Lab 03/21/19 12:10 Completed COMPREHENSIVE METABOLIC PANEL [CHEM] Stat Lab 03/21/19 12:10 Completed PRO B-NATRIURETIC PEPTIDE Stat Lab 03/21/19 12:10 Completed TROPONIN T Stat Lab 03/21/19 12:10 Completed Result Diagrams: 03/21/19 12:10 03/21/19 12:10 - REASSESSMENT Reassessment #1 Time Reassessed: 13:45 Status: unchanged (Dr. Kim discussed results with pt and his family. He discussed possibility of admission if he was ucomfortable going home. Family states they would like to discuss this with him further before deciding.) Reassessment #2 Time Reassessed: 14:15 Status: unchanged (Pt and his family state they would like for the pt to be admitted, as they are uncomfortable going home.) - EKG 1 Time of EKG reading by physician:: 12:25 EKG Read and Signed by:: Cammy Kim EKG Interpretation (*Must complete 3 of following elements*): Abnormal Rate: 83 Rhythm: Sinus with sinus arrhythmia with 1st degree AV block Doyle: left QRS: RBB, other (septal infarct; possible lateral infarct) HI Interval: normal ST Wave: normal - XRAY 1 XRAY Study: Chest Impression: See EMR Report ([facility] - [address] [place] [address] [place] [id number] [facility] - [address] [id number] Department of Imaging Patient: NIKUNJ SNELL JADM Date: 03/21/19#: [id number] : 1935DM Status: REG [facility]#: [id number] Age/Sex: 83/MRoom/Bed: Loc: ED Ordering Physician: Cammy Kim MD Family Physician: Brendan Velasquez MD Reason for Procedure: SOB Signed EXAM: CHEST-1 VIEW 03/21/2019 HISTORY: SOB TECHNIQUE: AP portable at 1218 COMMENT: The inspiration is less optimal than on 03/16/2019. There are atelectatic appearing opacities in the right base. IMPRESSION: Right lower lobe subsegmental atelectasis. Electronically signed by Freeman Emerson 03/21/2019 1:24 PM 03/21/19 1324 Interpreting Physician: Freeman Emerson MD Dictated Date/Time: 03/21/19 1324 cc: Cammy Kim MD; Brendan Velasquez MD) 2 XRAY Study: Abdomen Impression: See EMR Report ([facility] - [address] [place] [address], [address] [place] [id number] [facility] - [address] [id number] Department of Imaging Patient: NIKUNJ SNELL JADM Date: 03/21/19#: [id number] : 1935DM Status: REG ERAcct#: [id number] Age/Sex: 83/MRoom/Bed: Loc: ED Ordering Physician: Cammy Kim MD Family Physician: Brendan Velasquez MD Reason for Procedure: abd distension Signed EXAM: KUB ABDOMEN 03/21/2019 HISTORY: abd distension TECHNIQUE: KUB COMMENT: There is no evidence of bowel obstruction organomegaly mass or other definite abnormality. IMPRESSION: No evidence of bowel obstruction. Electronically signed by Freeman Emerson 03/21/2019 1:23 PM 03/21/19 1323 Interpreting Physician: Freeman Emerson MD Dictated Date/Time: 03/21/19 1323 cc: Cammy Kim MD; Brendan Velasquez MD) - CONSULTS/PCP/HOSPITALIST Notification #1 *Consult/PCP/Hospitalist*: Dr. Montgomery for Dr. Velasquez Time Discussed: 14:45 Reason/Comments: Dyspnea Consult Disposition: Admit Departure - Departure Date of Disposition Decision: 03/21/19 Time of Disposition Decision: 14:55 DIAGNOSIS: Dyspnea Qualifiers: Dyspnea type: unspecified Qualified Code(s): R06.00 - Dyspnea, unspecified Disposition: ADMITTED INPATIENT 09 Certified Medical Emergency: Emergent Condition: Stable Referrals and Follow-Ups: Brendan Velasquez MD [Primary Care Provider] - - Critical Care Note This patient required my direct & personal management of CC.: No Attestation - Physician/ DOV Attestation Patient care was provided by Advanced Practice Provider:: No The physician spent face to face time with patient:: Yes Advanced Practice Provider documentation review:: Supervising physician onsite and consulted in the evaluation and care of this patient. The physician did have a face to face encounter with the patient. This chart was documented by the indicated scribe, (Alethea Alfaro, Chloé) and accurately reflects the services I performed and decisions made by me, Cammy Kim MD, as attested by the provider's signature.
[2019-03-21 13:08] LABS: ALB/GLOB RATIO 0.9; ALBUMIN 2.7 g/dL (3.5-5.0); CALCIUM 8.7 mg/dL (8.8-10.2); CREATININE 1.3 mg/dL (0.7-1.2); POTASSIUM 4.7 mmol/L (3.5-5.1); TOTAL BILIRUBIN 0.32 mg/dL (0.20-1.00); TOTAL PROTEIN 5.6 g/dL (6.3-8.3)
--- NOTE | 2019-03-21 13:26 | Diag Imaging Result Doc PS360 ---
EXAM: KUB ABDOMEN 03/21/2019 HISTORY: abd distension TECHNIQUE: KUB COMMENT: There is no evidence of bowel obstruction organomegaly mass or other definite abnormality. IMPRESSION: No evidence of bowel obstruction. Electronically signed by Freeman Emerson 03/21/2019 1:23 PM
--- NOTE | 2019-03-21 13:27 | Diag Imaging Result Doc PS360 ---
EXAM: CHEST-1 VIEW 03/21/2019 HISTORY: SOB TECHNIQUE: AP portable at 1218 COMMENT: The inspiration is less optimal than on 03/16/2019. There are atelectatic appearing opacities in the right base. IMPRESSION: Right lower lobe subsegmental atelectasis. Electronically signed by Freeman Emerson 03/21/2019 1:24 PM
[2019-03-21 15:20] LABS: ALLEN TEST NO; BE 2.6 mmoll (-3.0-3.0); BLOOD TYPE ARTERIAL; HCO3-(ACT) 26.8 mmoll (20.0-26.0); METHB 1.5 % (0.0-1.5); O2(CT) 20.8 mL/dL (15.0-23.0); O2HB 94.3 % (95.0-99.0); PCO2(98.6) 37 mmHg (35-45); PO2(98.6) 80 mmHg (60-100); SAMPLE BLOOD; SAO2 97.5 % (95.0-100.0); THB 15.7 g/dL (11.5-17.4); pH(98.6) 7.46 (7.35-7.45)
[2019-03-21 15:29] LABS: MODALITY ROOM AIR
--- NOTE | 2019-03-21 18:43 | HISTORY AND PHYSICAL ---
PRIMARY CARE PHYSICIAN: Dr. Brendan Velasquez. CHIEF COMPLAINT: Progressive shortness of breath. HISTORY OF PRESENT ILLNESS: This 83-year-old white male with a past medical history significant for peripheral neuropathy, vitamin B12, hypertension, osteoarthritis, and psoriasis presents for evaluation of above mentioned symptoms. Pertinent history of present illness began on 03/16/2019. At that time, the patient presented to the emergency department for a three to four-day history of progressive shortness of breath and increasing abdominal girth. Full evaluation was pursued. CT scan of the abdomen and pelvis revealed moderate ascites with omental caking consistent with carcinomatosis and an ill-defined mass in the left lobe of the liver with scattered hypoenhancing lesions throughout. The patient was admitted to the hospital. Therapeutic and diagnostic paracentesis was performed. Four and a half liters were removed. Cytology is pending. Additionally, a biopsy of the liver was pursued, also with pathology pending. Because of stabilization of his symptoms, the patient was discharged home on 03/19/2019. The patient states at that time he did not feel well but was interested in going home as he felt better than he had upon admission. Yesterday, patient states that he felt "fair." This morning, he awoke at 5:00 a.m. Since that time, he has experienced increasing shortness of breath and feeling of ill being. He described this feeling as "could not get fixed." Over the last 24 hours, he has gained a pound, per his scale. He notes increasing abdominal girth. Shortness of breath is progressive, but without significant cough, congestion, or wheezing. He denies cardiac symptoms, including chest pains or palpitations. Urinary and GI symptoms are unchanged from his baseline. Because of the recurrence of symptoms, the patient will be admitted to the hospital for full evaluation and management. PAST MEDICAL HISTORY: 1. History of moderate to significant alcohol intake until 2018. 2. Peripheral neuropathy. 3. Vitamin B12 deficiency. 4. Hypertension. 5. Osteoarthritis. 6. Psoriasis. 7. Recent diagnosis of ascites with omental caking and associated liver mass. CURRENT MEDICATIONS: 1. Aleve 220 mg daily. 2. Vitamin B12 1000 mcg daily. 3. Latanoprost one drop in each eye at bedtime. 4. Aspirin 81 mg daily. 5. PreserVision AREDS 2, multivitamin, two capsules daily. ALLERGIES: The patient answered no known drug allergies. SOCIAL HISTORY: The patient is . He previously smoked one pack per day for approximately 40 years. He stopped in 1996. He previously used alcohol, moderate to significant amount, until 2018. He denies illicit drug use. 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 FAMILY HISTORY: The patient's mother passed at age 96 secondary to an unknown specific cause. The patient's father passed at age 82 secondary to complications of lung cancer. REVIEW OF SYSTEMS: A 12-point review of systems was performed. Pertinent positives and negatives were noted in the history present illness. PHYSICAL EXAMINATION: VITAL SIGNS: Temperature 98.5 degrees, heart rate 77, respirations 21, blood pressure 101/64. GENERAL: Well nourished, well developed, no acute distress. HEENT: Normocephalic, atraumatic. Pupils equal, round, and react to light. Extraocular muscles intact. Sclerae anicteric. Lely conjunctivae. Oral and nasopharynx clear without exudate. NECK: Supple. No lymphadenopathy. No thyromegaly. No bruits auscultated. CARDIOVASCULAR: Regular rate and rhythm. No significant murmurs, rubs, or gallops. PULMONARY: Clear to auscultation bilaterally. ABDOMEN: Soft, slightly distended with questionable fluid wave, nontender, positive bowel sounds. EXTREMITIES: Moves all extremities well. No significant clubbing, cyanosis, or edema. NEUROLOGIC: Cranial nerves II through XII grossly intact. Motor and sensory grossly intact. PSYCHOLOGIC: Examination is appropriate. LABORATORY DATA: White blood cell count 13.16, hemoglobin 14.5, hematocrit 43.7, platelet count is 416,000. Arterial blood gases, pH 7.46, pCO2 37, pO2 80, bicarbonate 26.8. Sodium 135, potassium 4.7, chloride 96, bicarb 25, BUN 27, creatinine 1.3, glucose 112, calcium 8.7, total bilirubin 0.32, total protein 5.6, albumin 2.7, alkaline phosphatase 98, AST 28, ALT 12. CK, total 35. Troponin less than 0.010. PERTINENT RECENT LABS: Alpha fetoprotein returned less than 2.7. CEA 0.6. CA19-9 16. PSA 0.01. IMAGING: Chest x-ray revealed right lower lobe subsegmental atelectasis. Abdominal x-ray suggested no evidence of bowel obstruction. ASSESSMENT AND PLAN: An 83-year-old white male with a very concerning recent past medical history as described above, presents for evaluation of shortness of breath. Unfortunately, the patient was out of the hospital only since 03/19/2019. While I suspect this likely represents reaccumulation of fluid associated with his underlying abdominal malignancy, I cannot fully rule out additional causes. The patient will be admitted to the hospital for full evaluation and management. 1. Admit to general medicine. 2. Shortness of breath - as above, I suspect this is a consequence of increasing abdominal girth associated with accumulation of fluid secondary to his underlying intraabdominal malignancy. I cannot fully rule out additional pulmonary etiologies. We will check a D dimer today. I suspect this may be elevated simply from his underlying malignancy, but if this returns negative, this would effectively rule out a deep venous thrombosis/pulmonary thromboembolism. If this returns positive, we will consider a VQ scan in the setting of mild renal dysfunction. We will treat patient with oxygen supplemental per protocol. We will encourage incentive spirometry. We will follow this. 3. Leukocytosis - patient's white blood cell count is again elevated, very similar to the level upon discharge from the hospital. Ascitic fluid did not show evidence of infection while hospitalized. CT scan of the abdomen and pelvis suggested the lower lung bowie were clear of infection. At this point, we will follow clinically. If patient does manifest any evidence of infection, we will have a low threshold for adding antibiotic intervention. 4. Recent diagnosis of liver mass with associated omental caking - cytology from the ascitic fluid and pathology from biopsy are pending. Further intervention will be determined depending on these results. In anticipate this should be available in the near future. 5. Acute renal dysfunction - the patient's creatinine has increased from 0.9 to 1.3 within the last two days. I suspect this may be secondary to fluid shift associated with his large volume paracentesis. While I would like to consider diuretic intervention, I do not feel this is appropriate at present time. We will follow this. 6. Hypertension - the patient's chlorthalidone has been held. We will continue to hold this for now. 7. Thrombocytosis - the patient has a mild thrombocytosis, likely reactive. We will remain aware. 8. Prognosis - at this point, the patient's prognosis is guarded. Depending on the pathology, palliative intervention may be appropriate. We will await those results to determine if a therapeutic or palliative approach will be necessary. 9. Fluid, electrolytes, nutrition - will monitor electrolytes. Saline lock IV. Low sodium diet. 10.Prophylaxis - the patient will be placed on sequential compression devices. cc: Jose Guadalupe Montgomery MD
[2019-03-21] MEDS: AMBIEN PO PRN (20:40)
[2019-03-21] MEDS: LOVENOX SUBQ SCH (20:40)
[2019-03-21] MEDS: XALATAN 0.005% OPH SOLN BOTH EYES SCH (20:41)
[2019-03-22 05:24] LABS: BASO# 0.06 X1000 (0.0-0.2); BASO% 0.5 % (0.0-0.8); EOS# 0.36 X1000 (0.0-0.7); EOS% 2.8 % (0.0-10.0); HEMATOCRIT 42.6 % (42.0-52.0); HEMOGLOBIN 14.1 g/dL (14.0-18.0); IMM GRAN# 0.06 X1000 (0.0-0.04); IMM GRAN% 0.5 % (0.0-0.5); LYMPH# 1.12 X1000 (1.2-3.4); LYMPH% 8.6 % (20.5-51.1); MCH 29.6 PG (27-31); MCHC 33.1 g/dL (33-37); MCV 89.5 FL (81-99); MONO# 1.41 X1000 (0.11-0.59); MONO% 10.8 % (1.7-9.3); MPV 10.2 FL (7.4-10.4); NEUT# 10.04 X1000 (1.4-6.5); NEUT% 76.8 % (42.2-75.2); PLT 400 X1000 (130-400); RBC 4.76 XMIL (4.7-6.1); RDW 13.6 % (11.5-14.5); WBC 13.05 X1000 (4.8-10.8)
[2019-03-22 05:38] LABS: INR 1.05; PROTIME 13.8 Seconds (11.0-16.0)
[2019-03-22 05:39] LABS: PTT 31.3 Seconds (22.3-41.8)
[2019-03-22 05:40] LABS: AGAP 11; ALBUMIN 2.5 g/dL (3.5-5.0); ALKALINE PHOSPHATASE 90 U/L (32-122); BUN 24 mg/dL (8-22); CALCIUM 8.3 mg/dL (8.8-10.2); CHLORIDE 96 mmol/L (98-107); COSMO 271; ESTIMATED GFR > 60; GLUCOSE 111 mg/dL (70-104); GOT 24 U/L (10-34); GPT 9 U/L (10-44); POTASSIUM 4.4 mmol/L (3.5-5.1); SODIUM 133 mmol/L (136-145); TCO2 26 mmol/L (25-35); TOTAL BILIRUBIN 0.36 mg/dL (0.20-1.00)
[2019-03-22] MEDS ORDERED: LASIX IV ONE (07:59)
--- NOTE | 2019-03-22 08:00 | EKG Report ---
Test Performed on : 03/21/2019 12:25:29 PM Test Reason : ED. NO EKG ORDER FOR MUSE Blood Pressure : / mmHG Vent. Rate : 083 BPM Atrial Rate : 083 BPM P-R Int : 210 ms QRS Dur : 130 ms QT Int : 402 ms P-R-T Axes : -26 -35 008 degrees QTc Int : 472 ms Sinus rhythm. with sinus arrhythmia. with 1st degree AV block. Left axis deviation Right bundle branch block Septal infarct , age undetermined Possible Lateral infarct , age undetermined Abnormal ECG When compared with ECG of 16-MAR-2019 14:10, (Unconfirmed) premature atrial complexes. are no longer present Septal infarct is now present Borderline criteria for Lateral infarct are now present Unconfirmed Result
[2019-03-22] MEDS: ASPIRIN PO SCH (10:17)
--- NOTE | 2019-03-22 14:02 | Diag Imaging Result Doc PS360 ---
EXAM: CHEST-2 VIEWS HISTORY: CANCER, ELEVATED D-DIMER TECHNIQUE: Two views COMPARISON: 03/21/2019. FINDINGS: The lungs are well expanded. The heart is not enlarged. The vessels are not distended. There are no infiltrates. No pleural effusions. IMPRESSION: No acute abnormality. Electronically signed by Richard Caballero 03/22/2019 2:00 PM
--- NOTE | 2019-03-22 14:07 | Diag Imaging Result Doc PS360 ---
EXAM: US ABDOMEN-COMPLETE HISTORY: Liver mass/ ascites TECHNIQUE: Abdominal ultrasound COMPARISON: 03/16/2019 CT FINDINGS: There is fatty infiltration of the liver. The common bile duct measures less than 2 mm. The gallbladder is poorly seen. The spleen is not enlarged. There is a 5 cm right renal cyst. No hydronephrosis. Trace fluid about the liver. The pancreas, aorta, and inferior vena cava are all obscured. IMPRESSION: Fatty infiltration of the liver. The left lobe of the liver is poorly seen. There is only trace ascites. Electronically signed by Richard Caballero 03/22/2019 2:04 PM
--- NOTE | 2019-03-22 14:12 | Diag Imaging Result Doc PS360 ---
LUNG SCAN / VQ - 03/22/2019 INDICATION: cancer, elevated d-dimer TECHNIQUE: 40.4 mCi of DTPA was used for inhalation. 5.8 mCi of MAA was used for injection. COMPARISON: Chest x-ray from 03/21/2019 FINDINGS: There is normal localization pattern of the radiotracer's. There is no evidence of pulmonary perfusion defect. IMPRESSION: Negative for pulmonary embolism. Electronically signed by Murali Tabares 03/22/2019 2:09 PM
[2019-03-22] MEDS: PATIENT'S OWN MED PO SCH (16:09)
--- NOTE | 2019-03-22 17:20 | HEMO/ONC CONSULTATION ---
DATE: 03/22/2019 REASON FOR CONSULTATION: Liver mass. HISTORY OF PRESENT ILLNESS: This is an 83-year-old male who is a patient of Dr. Lucia. He recently was hospitalized for progressively worsening shortness of breath and increasing abdominal girth. It was after a CT scan he was admitted with liver metastasis, peritoneal carcinomatosis, and upper abdominal lymphadenopathy. The patient had a liver biopsy while hospitalized last week and was discharged on FridayMarch 19. The patient has returned to the hospital with again increasing shortness of breath from abdominal ascites. We are continuing to await pathology from the liver biopsy. He is continuing to have increased shortness of breath and not feeling well due to increased abdominal girth. PAST MEDICAL HISTORY: 1. History of moderate to significant alcohol intake until 2018. 2. Peripheral neuropathy. 3. Vitamin B12 deficiency. 4. Hypertension. 5. Osteoarthritis. 6. Psoriasis. 7. Recent diagnosis of ascites with omental caking and associated liver mass. SOCIAL HISTORY: The patient currently drinks alcohol daily. He did have significant abuse up until 2018. He is currently drinking 1 drink a day. He smoked about a pack a day for approximately 40 years but quit in 1996. CURRENT MEDICATIONS: 1. Aleve. 2. Vitamin B12. 3. Latanoprost. 4. Aspirin. 5. PreserVision AREDS 2 multivitamin. ALLERGIES: No known drug allergies. PAST SURGICAL HISTORY: Prostatectomy in 2004 followed by a penile prosthesis. REVIEW OF SYSTEMS: The patient is significant for shortness of breath and abdominal distention. Other pertinent positives were noted in the HPI. All other review of systems are negative. VITAL SIGNS: Temperature 97.7 degrees, pulse rate 82, respiratory rate 16, blood pressure 116/53, O2 sat 97% on room air. He is in 0/10 pain. PHYSICAL EXAMINATION: General: The patient is in no acute distress. HEENT: Sclerae is anicteric. PERRLA. Oral mucosa is normal. Cardiovascular: Regular rate and rhythm. Normal S1, S2. No significant murmurs, rubs, or gallops. Respiratory: Lungs are clear to auscultation. Normal respiratory effort. Gastrointestinal: Abdomen is soft, distended, nontender. Positive bowel sounds. Extremities: Moves all extremities well. No lower extremity edema noted. Neurological: Awake and alert x3. No focal motor deficits. LABORATORY: WBC 13.05, hemoglobin 14.1, hematocrit 42.6, platelet count 400,000. D-dimer 11.78. RADIOLOGY: Chest x-ray: No acute abnormality. No pleural effusion. Lung scan V/Q: Negative for pulmonary embolism. Abdominal ultrasound: Fatty infiltration of the liver, trace ascites. Abdominal x-ray shows no evidence of bowel obstruction. ASSESSMENT AND PLAN: 1. Liver metastasis, peritoneal carcinomatosis, and upper abdominal lymphadenopathy. Primary tumor remains uncertain. We are continuing to wait on results from liver biopsy. We will continue to monitor. 2. Shortness of breath. This is most likely a complication of increasing abdominal girth due to ascites. Continue medical management. 3. Deep venous thrombosis prophylaxis. Continue to get the patient up out of bed several times a day. He should have SCDs while resting. 4. Ascitis: Has reaccumulated quickly. Proceed with scrap piler drainage and consult surgery for same. Dictated by JITENDRA Gerardo for Koby Tomas MD Patient seen. As above. Discussed prelim path results. Positive for adenocarcinoma. Koby barrett MD cc: MD Jose Guadalupe Cruz MD MTDD
[2019-03-22] MEDS: LOVENOX SUBQ SCH (17:51)
[2019-03-22] MEDS: XALATAN 0.005% OPH SOLN BOTH EYES SCH (20:06)
[2019-03-22] MEDS: AMBIEN PO PRN (20:06)
[2019-03-22] MEDS: ALDACTONE PO SCH (20:06)
[2019-03-23] MEDS ORDERED: LASIX LIQUID PO SCH (09:15)
[2019-03-23] MEDS: ASPIRIN PO SCH (09:18)
[2019-03-23] MEDS: ALDACTONE PO SCH (09:18)
[2019-03-23] MEDS: PATIENT'S OWN MED PO SCH (09:19)
[2019-03-23] MEDS ORDERED: LASIX PO SCH (10:15)
--- NOTE | 2019-03-23 10:21 | CONSULTATION ---
DATE OF CONSULTATION: 03/23/2019 Mr. Fer Gandara is an 83-year-old white male patient of Dr. Brendan Velasquez who recently experienced increasing abdominal distention and shortness of breath. A CT scan suggests a liver mass left lobe and carcinomatosis with ascites. He had paracentesis performed by Radiology on 03/17/2019 with removal of approximately 4.5 L of fluid. This improved his symptoms and he was sent home after undergoing a liver biopsy but after several days returned to the hospital because of shortness of breath. He has been admitted for treatment of shortness of breath and abdominal distention secondary to ascites. We were asked to evaluate him for possible placement of a peritoneal catheter for drainage of his ascites. PAST MEDICAL HISTORY: Alcohol abuse, until 2018, peripheral neuropathy, vitamin B12 deficiency, hypertension, osteoarthritis, psoriasis and recent diagnosis of liver mass with carcinomatosis. MEDICATIONS: Aleve, vitamin B12, latanoprost eye drops, aspirin 81 mg daily, multivitamin. ALLERGIES: No known drug allergies. SOCIAL HISTORY: He is . He is a previous smoker. He stopped in 1996. He has abused alcohol until 2018. 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 FAMILY HISTORY: His mother passed at age 96, father passed at age 82 secondary to lung cancer. REVIEW OF SYSTEMS: A 14-point review of systems was performed. It was essentially negative except for the history of present illness. PHYSICAL EXAMINATION: Mr. Gandara is an older white male who is awake, cooperative, in no acute distress. HEENT exam: No jaundice. No oral lesions. No cervical or supraclavicular lymphadenopathy. Heart: Has regular rate. Lungs: Were clear. Abdomen: Was distended but not tightly. There was no palpable mass. No tenderness. No hernia. No costovertebral tenderness. Rectal: Exam was not performed. Extremities: He does have palpable femoral pulses. No significant peripheral edema. Neurological: He had no focal deficit. IMPRESSION: Left liver mass with carcinomatosis and malignant ascites. We are awaiting pathology reports from biopsy of the left liver mass and the ascitic fluid. Certainly diuretics would be the 1st choice in treating his malignant ascites. Any the tubing or incision on the abdomen has the potential of leaking ascitic fluid that is difficult to control. Also malignant ascites can sometimes the fluid can thicken and a catheter not be all that effective with draining it. Life expectancy with malignant ascites is 1-4 months. Will follow along and depending on medical treatment and the patient's clinical course, can re-evaluate for peritoneal catheter. cc: MD oJse Guadalupe Plasencia MD
[2019-03-23 16:53] VITALS: BP 131/47
[2019-03-23] MEDS: LOVENOX SUBQ SCH (17:26)
--- NOTE | 2019-03-23 17:52 | DISCHARGE SUMMARY ---
ADMISSION DATE: 03/21/2019 DISCHARGE DATE: 03/23/2019 FINAL DIAGNOSES: 1. Malignant ascites. 2. 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 3. Dyspnea due to respiratory embarrassment from ascites. HISTORY OF PRESENT ILLNESS: Mr. Gandara is an 83-year-old gentleman with a past medical history remarkable for hypertension, psoriasis and peripheral neuropathy. On March 16 he presented with a 3- or 4-day history of progressive shortness of breath and increasing abdominal girth. CT scan of the abdomen and pelvis revealed moderate ascites with omental caking and a massive left lobe of the liver. He was admitted and underwent paracentesis and CT-directed needle biopsies of the left lobe liver mass. He was discharged and went home and returned after approximately 48 hours with recurrent and increasing shortness of breath. Physical examination revealed clear lungs, regular rate and rhythm of the heart, and a globular, slightly distended abdominal exam with no tenderness and active bowel sounds. DATABASE: White blood count 13,000, hemoglobin 14.5, hematocrit 43.7%, platelet count normal. Creatinine was increased from 1.0 to 1.3. HOSPITAL COURSE: He was admitted with a diagnosis of increasing ascites and shortness of breath. He had a D-dimer performed which was quite elevated at 11.7. He subsequently had a V-Q scan which was normal with no evidence of pulmonary embolism. He was seen in consultation by Dr. Head, General Surgery, for consideration of an indwelling peritoneal catheter to drain fluid out. Dr. Head preferred to try medications/diuretics first, and if he had repeated episodes, he would consider such a catheter. He was started on Lasix 20 mg every morning and spironolactone 25 mg twice a day. He was to return to my office in 8-14 days, and to see Dr. Tomas next Friday to review his special stains of his liver biopsy. The verbal report is that this is some form of adenocarcinoma, but the primary remains uncertain. cc: MD Jose Guadalupe Watkins MD Naveen T. Lobo, MD Lynn R. Buckner, MD
[2019-03-23] MEDS ORDERED: AMBIEN PO SCH (21:00)
[2019-03-24] MEDS ORDERED: LASIX PO SCH (09:00)
--- NOTE | 2019-03-24 15:20 | Extremity Venous Study ---
PROCEDURE NAME: Venous U/S Bilateral Legs - 03/22/2019 REFERRING PHYSICIAN: Dr. Montgomery. READING PHYSICIAN: Edgard Randall MD. OIL SPECULATOR: Binh. INDICATION: Elevated D-dimer. FINDINGS: The deep and superficial veins of both lower extremities were imaged throughout their course. They are compressible and patent without thrombus. INTERPRETATION: No DVT or SVT of either lower extremity. cc: MD Jose Guadalupe Telles MD
== END 2019-03-23 17:45 | disposition home or self-care (01) | DRG 436 ==
LOC: ED 11:12 → EDIPHOLD 16:23 → 1N 17:42
PROVIDERS: ADMIT Internal Medicine; ATTEND Internal Medicine